=== PATIENT | male | born 1950 | race Caucasian/White ===

== ENCOUNTER 2021-09-19 17:05 | Emergency (ER) | payer MEDICARE ==
[~2021-09-19] VITALS: Ht 175.3 cm; Wt 107.0 kg
[2021-09-19 18:30] LABS: EOSINOPHIL 0.6 % (0-7); HCT 41.2 % (42.0-52.0); HGB 13.8 g/dl (13.2-18.0); LYMPHOCYTE 21.5 % (15-48); MCH 29.3 pg (25.0-31.0); MCHC 33.5 g/dL (32.0-36.0); MCV 87.5 fL (78.0-100.0); MONOCYTE 11.6 % (0-12); MPV 9.7 fL (6.0-9.5); NEUTROPHIL 61.4 % (41-80); NRBC 0.3; PLT 180 K/uL (150-400); RBC 4.71 M/uL (4.70-6.00); RDW 14.6 % (11.5-14.0)
[2021-09-19 18:42] LABS: BILIRUBIN NEGATIVE (NEGATIVE); BLOOD NEGATIVE Ery/uL (NEGATIVE); CLARITY CLEAR (CLEAR); COLOR YELLOW (YELLOW); GLUCOSE (U) NORMAL (NORMAL); LEUKOCYTES NEGATIVE Leu/uL (NEGATIVE); NITRITE NEGATIVE (NEGATIVE); PROTEIN NEGATIVE (NEGATIVE); UROBILINOGEN 0.2 mg/dL (0.2-1.0)
[2021-09-19 18:46] LABS: ALBUMIN 3.9 g/dL (3.4-5.0); BILIRUBIN - TOTAL 0.6 mg/dL (0.2-1.0); BUN/CREAT RATIO (CALC) 17.2 RATIO; CREATININE 1.16 mg/dL (0.67-1.17); GLOBULIN (CALCULATION) 3.2 g/dL; MAGNESIUM 2.2 mg/dL (1.8-2.4); POTASSIUM 3.9 mmol/L (3.5-5.1); TOTAL PROTEIN 7.1 g/dL (6.4-8.2)
[2021-09-19 18:48] LABS: AMPHETAMINES NEGATIVE (NEGATIVE); BARBITURATES NEGATIVE (NEGATIVE); ECSTASY (MDMA) NEGATIVE (NEGATIVE); MARIJUANA (THC) NEGATIVE (NEGATIVE); METHADONE NEGATIVE (NEGATIVE); OPIATES NEGATIVE (NEGATIVE); OXYCODONE NEGATIVE (NEGATIVE)
[2021-09-19 18:58] LABS: LACTIC ACID 2.5 mmol/L (0.4-1.9)
== END 2021-09-21 00:20 | disposition other institution (70) ==
LOC: FER 17:05
PROVIDERS: Emergency Medicine
DX: R56.9 Unspecified convulsions (principal); I10 Essential (primary) hypertension
CPT/HCPCS: 36415; 70450; 71045; 80053; 80305; 81003; 83605; 83735; 84145; 84484; 85025; 93005